=== PATIENT | female | born 1940 ===

== ENCOUNTER 2019-10-04 15:41 | Emergency (ER) | payer SELFPAY ==
[2019-10-04] MEDS ORDERED: Acetaminophen 500 MG Tab PO ONE (16:11)
--- NOTE | 2019-10-04 16:23 | EDM.PDOC ---
ED HPI GENERAL MEDICAL PROBLEM - General Chief Complaint: Upper Extremity Injury/Pain Stated Complaint: PT FELL Time Seen by Provider: 10/04/19 15:57 Source of Information: Reports: Patient History Limitations: Reports: No Limitations - History of Present Illness INITIAL COMMENTS - FREE TEXT/NARRATIVE: HISTORY AND PHYSICAL: History of present illness: Patient is a 78-year-old female who presents to the emergency room today with complaints of right elbow/humeral pain after a fall. While leaving a convenient store she tripped resulting in trying to catch herself with an outstretched arm. She denies hitting her head or having any loss of consciousness. Upon trying to get up she noticed pain just above her elbow into the right humerus. Her family member brought her here to the emergency room. She does have a past medical history of hypertension, elevated cholesterol and pulmonary fibrosis - does not take US brand medications and is unsure of the names of these. Patient denies any fever, chills, headache, change in vision, syncope or near syncope. Denies any chest pain, back pain, shortness of breath or cough. Denies any abdominal pain, nausea, vomiting, diarrhea, constipation or dysuria. Has not noted any blood in urine or stool. Patient has been eating and drinking appropriately. Review of systems: As per history of present illness and below otherwise all systems reviewed and negative. Past medical history: As per history of present illness and as reviewed below otherwise noncontributory. Surgical history: As per history of present illness and as reviewed below otherwise noncontributory. Social history: See social history for further information Family history: As per history of present illness and as reviewed below otherwise noncontribut ory. Physical exam: General: Well-developed and well-nourished 78-year-old female. Alert and oriented. Nontoxic-appearing and in no acute distress. Patient is French speaking, family member at bedside translating per patient request, she declines translation services through [employer]. HEENT: Atraumatic, normocephalic, pupils equal and reactive bilaterally, negative for conjunctival pallor or scleral icterus, mucous membranes moist, TMs normal bilaterally, throat clear, neck supple, nontender, trachea midline. No drooling or trismus noted. No meningeal signs. No hot potato voice noted. Lungs: Clear to auscultation, breath sounds equal bilaterally, chest nontender. Heart: S1S2, regular rate and rhythm without overt murmur Abdomen: Soft, nondistended, nontender. Negative for masses or hepa tosplenomegaly. Negative for costovertebral tenderness. Pelvis: Stable nontender. C-spine/Back: No pinpoint vertebral tenderness upon palpation. No crepitus, step-offs or obvious deformities. Patient is ambulatory into the emergency room without difficulty or deficit. Able to rock back on heels and walk on toes. Denies any urinary or fecal incontinence. Denies any numbness, tingling or saddle paresthesia. No concerns of serious infection, fracture or cord compression, or cauda equina syndrome. Deep tendon reflexes brisk bilaterally. Skin: Intact, warm, dry. No lesions or rashes noted. Extremities: Pain with palpation of the proximal right elbow into the proximal humerus with limited range of motion without inducing moderate to severe pain. Moderate pain with shoulder ROM. No clavicular pain or tenting noted. Good flexion and extension of the hand and wrist. Otherwise she moves all extremities per self without difficulty or deficits. Neurovascular unremarkable. Neuro: Awake, alert, oriented. Cranial nerves II through XII unremarkable. Cerebellum unremarkable. Motor and sensory unremarkable throughout. Exam nonfocal. Notes: Patient states she will take Tylenol for pain. Will obtain x-ray of the right upper extremity. Right elbow is less than optimal, no acute findings are appreciated. She has a minimally displaced, compacted proximal humeral fracture is noted. No dislocation is reported by Dr. Godfrey, radiologist. We currently have no orthopedic coverage in [facility]. I spoke with Dr Wells, at [facility]. He states this patient can be splinted and follow-up with him in the clinic in the next 1 to 2 weeks. All information was shared with the patient and son who is at bedside. A shoulder immobilizer was placed, and checked for placement. Strong radial pulse, strong grasp, + CMS. Follow-up and supportive care measures were reviewed and discussed. Voices understanding and is agreeable to plan of care. Denies any further questions or concerns at this time. Upon preparing the patient for discharge she is now requesting something for pain, she was able to get her home medication list. This includes losartan, atorvastatin, D3 and Ofev. There is no drug interactions with tramadol, will prescribe this. Medication education was given. Diagnostics: Right Elbow, Humerus, Shoulder x-ray Therapeutics: Tylenol, Shoulder immobilizer Prescription: Tramadol (#15) Impression: Proximal right humeral fracture Plan: 1. Your x-ray shows a humeral fracture. Please rest, ice, elevate the affected extremity. Please wear the shoulder immobilizer directed. 2. Tylenol and/or Ibuprofen as needed for pain management. 3. Follow up with the Orthopedic provider as we discussed. Please call tomorrow to set up a follow up appointment with Dr Wells or Dr Solis at [facility]. 4. Return to the ED as needed and as discussed. Definitive disposition and diagnosis as appropriate pending reevaluation and review of above. right arm Pain Score (Numeric/FACES): 8 - Related Data Allergies Allergy/AdvReac Type Severity Reaction Status Date / Time No Known Allergies Allergy Verified 10/04/19 16:12 Home Meds: Home Meds traMADol [Ultram] 50 mg PO Q4H PRN #15 tab 10/04/19 [Rx] Review of Systems - Review of Systems Review Of Systems: Comprehensive ROS is negative, except as noted in HPI. ED EXAM, GENERAL - Physical Exam Exam: See Below (See dictation) Course - Vital Signs Last Recorded V/S: Last Vital Signs Temp 96.7 F L 10/04/19 16:09 Pulse 91 10/04/19 16:09 Resp 17 10/04/19 16:09 BP 195/96 H 10/04/19 16:09 Pulse Ox 95 10/04/19 16:09 - Orders/Labs/Meds Orders: Active Orders 24 hr Category Date Time Status DME for Discharge [COMM] Stat Oth 10/04/19 18:03 Ordered Meds: Medications Discontinued Medications Generic Name Dose Route Start Last Admin Trade Name Freq PRN Reason Stop Dose Admin Acetaminophen 1,000 mg 10/04/19 16:11 10/04/19 16:48 Tylenol Extra Strength PO 10/04/19 16:12 500 mg ONETIME ONE Administration Departure - Departure Time of Disposition: 17:59 Disposition: Home, Self-Care 01 Clinical Impression: Humerus fracture Qualifiers: Encounter type: initial encounter Humerus Location: proximal Fracture type: closed Fracture alignment: displaced Laterality: right - Discharge Information Prescriptions: traMADol [Ultram] 50 mg PO Q4H PRN #15 tab PRN Reason: Pain Instructions: Humerus Fracture Treated With Immobilization, [id number] Referrals: PCP,None [Primary Care Provider] - Forms: ED Department Discharge Additional Instructions: The following information is given to patients seen in the emergency department who are being discharged to home. This information is to outline your options for follow-up care. We provide all patients seen in our emergency department wi th a follow-up referral. The need for follow-up, as well as the timing and circumstances, are variable depending upon the specifics of your emergency department visit. If you don't have a primary care physician on staff, we will provide you with a referral. We always advise you to contact your personal physician following an emergency department visit to inform them of the circumstance of the visit and for follow-up with them and/or the need for any referrals to a consulting specialist. The emergency department will also refer you to a specialist when appropriate. This referral assures that you have the opportunity for follow-up care with a specialist. All of these measure are taken in an effort to provide you with optimal care, which includes your follow-up. Under all circumstances we always encourage you to contact your private physician who remains a resource for coordinating your care. When calling for follow-up care, please make the office aware that this follow-up is from your recent emergency room visit. If for any reason you are refused follow-up, please contact the [facility] Emergency Department at and asked to speak to the emergency department charge nurse. [facility] [address] [facility] [place] [id number] Thank you for choosing the [facility] emergency department in [place] for your medical needs today. It was a pleasure caring for you. You were seen in the emergency department for arm fracture. 1. Your x-ray shows a humeral fracture. Please rest, ice, elevate the affected extremity. Please wear the shoulder immobilizer directed. 2. Tylenol and/or Ibuprofen as needed for pain management. 3. Follow up with the Orthopedic provider as we discussed. Please call tomorrow to set up a follow up appointment with Dr Wells or Dr Solis at [facility] in [place]. 4. Return to the ED as needed and as discussed. Sepsis Event Note (ED) - Evaluation Sepsis Screening Result: No Definite Risk - Focused Exam Vital Signs: Vital Signs Temp Pulse Resp BP Pulse Ox 10/04/19 16:09 96.7 F L 91 17 195/96 H 95 - My Orders Last 24 Hours: My Active Orders 10/04/19 18:03 DME for Discharge [COMM] Stat - Assessment/Plan Last 24 Hours: My Active Orders 10/04/19 18:03 DME for Discharge [COMM] Stat
--- NOTE | 2019-10-04 17:13 | CR ---
Right elbow: 3 views of the right elbow were obtained. Patient could not cooperate for adequate positioning. No discrete fracture, dislocation or other bony abnormality is appreciated. Impression: 1. Less than optimal study. Within this limitation, nothing acute is appreciated. Diagnostic code #1 This report was dictated in MDT
--- NOTE | 2019-10-04 17:15 | CR ---
Right humerus: 2 views of the right humerus were obtained. Fracture identified within the proximal humerus which involves proximal diaphysis, surgical neck as well as at the base of the greater tuberosity. Previous right shoulder surgery is noted. No additional abnormality is seen. Surgical clips are seen within the right axilla. Prior resection of the distal right clavicle. Osteopenia is noted. Impression: 1. Proximal right humeral fracture. 2. Other findings as noted above which are nonacute. Diagnostic code #5 This report was dictated in MDT
--- NOTE | 2019-10-04 17:26 | CR ---
Right shoulder: AP and Y scapular views of the right shoulder were obtained. Fractures are again noted. No dislocation is seen. Resection of the distal right clavicle is noted. Surgical anchors are seen within the humeral head. Surgical clips are seen within the right axillary region. Bony structures are osteopenic. Prior cervical spine surgery is noted. Impression: 1. Proximal humeral fracture is again noted as described on previous humerus study. 2. Other findings as noted above which are nonacute. 3. No dislocation is seen. Diagnostic code #3 This report was dictated in MDT
== END 2019-10-04 18:40 | disposition home or self-care (01) ==
LOC: MW.ED 15:41
DX: S42.201A Unspecified fracture of upper end of right humerus, initial encounter for closed fracture (principal); W01.0XXA Fall on same level from slipping, tripping and stumbling without subsequent striking against object, initial encounter
CPT/HCPCS: 73030; 73060; 73080; 99283; A9270

== ENCOUNTER 2021-10-28 19:38 | Emergency (ER) | payer MEDICARE ==
[2021-10-28] MEDS ORDERED: Sodium Chloride 0.9% 1,000 ML IV ONE (21:06)
[2021-10-28] MEDS ORDERED: Ketorolac 30 MG/ML SDV IVPUSH ONE (21:06)
[2021-10-28] MEDS ORDERED: Acetaminophen 500 MG Tab PO ONE (21:07)
[2021-10-28 22:03] LABS: CARBON DIOXIDE,CO2 28.1 mmol/L (21.0-32.0); POTASSIUM,K 3.7 mmol/L (3.5-5.1)
== END 2021-10-28 23:10 | disposition home or self-care (01) ==
LOC: MW.ED 19:38
DX: U07.1 COVID-19 (principal); I10 Essential (primary) hypertension; Z79.899 Other long term (current) drug therapy
CPT/HCPCS: 36415; 71045; 80053; 83605; 85025; 87040; 96361; 96374; 99284; A9270; J1885; J7030; U0002; 99283